=== PATIENT | male | born 1955 | race Asian ===

== ENCOUNTER 2018-08-31 18:00 | Inpatient (IN) | payer OTHER ==
[~2018-08-31] VITALS: Ht 170.2 cm; Wt 82.1 kg
[2018-08-31 18:07] VITALS: Ht 170.2 cm; Wt 82.1 kg
--- NOTE | 2018-08-31 18:30 | NUR ---
PATIENT BIBA AFTER HAVING DIZZINESS AND NAUSEA SINCE LAST NIGHT. STS THAT HE DID HAVE SOME INITIAL CHEST PRESSURE LAST NIGHT BUT THE PRESSURE WAS RELIEVED AFTER HE HAD VOMITTED. ASSISTED PATIENT TO [facility], PATIENT WAS DIZZY AND HAD DIFFICULTY AMBULATED TO [facility]. STS THAT HIS RIGHT LEG FEELS NUMB FOR THE PAST 6 MONTHS. AAOX4, PERRLA GCS 15, PATIENT ACTING APPROPRIATELY. AWAITING MSE
--- NOTE | 2018-08-31 19:06 | NUR ---
REPORT OFF TO ANTONIO MÉNDEZ
--- NOTE | 2018-08-31 19:07 | NUR ---
REPORT OFF TO ANTONIO MÉNDEZ
--- NOTE | 2018-08-31 19:07 | NUR ---
RECEIVED REPORT FROM SHARI ALVAREZ, I WILL RESUME FURTHER OF THIS PATIENT.
--- NOTE | 2018-08-31 19:32 | NUR ---
PT IN POSITION OF COMFORT IN SEMI CERDA'S, PT DENIES ANY PAIN. PT C/O FEELING DIZZY AT THIS TIME. NO NUERO DEFICITS NOTED. PT IS AAOX4, NO DISTRESS NOTED, RESP E/U, SKIN IS PINK WARM AND DRY. PT IN FULL CM, NSR, VSS. IV FLUSHED WITH 10CC SALINE, NO INFILTRATION OR PAIN NOTED TO SITE. BED IN LOWEST POSITION, SIDERAIL X1 UP FOR SAFETY, CALL BLOOM WITHIN REACH. WILL CONT TO MONITOR. NEPHEW AT THE BEDSIDE.
--- NOTE | 2018-08-31 19:56 | NUR ---
DR CAPONE AT [facility] FOR MSE TO PATIENT.
--- NOTE | 2018-08-31 20:26 | NUR ---
PT TAKEN OFF THE FLOOR TO RADIOLOGY VIA WHEELCHAIR. PT IN NO DISTRESS, RESP E/U.
--- NOTE | 2018-08-31 20:32 | NUR ---
RT AT BEDSIDE FOR ABG DRAW
[2018-08-31 20:42] LABS: BASOPHIL % 0.5 % (0-2); PLATELET COUNT 285 x10^3mcL (130-400); RED CELL DISTRIBUTION WIDTH 12.9 % (11.5-14.5)
--- NOTE | 2018-08-31 20:48 | NUR ---
XRAY AT BEDSIDE
[2018-08-31 20:51] LABS: CALCIUM 8.8 mg/dL (8.5-10.1); CHLORIDE SERUM 103 mmol/L (98-107); CREATININE SERUM 1.1 mg/dL (0.7-1.3); GFR1 > 60 mL/min; GLUCOSE SERUM 272 mg/dL (74-106); POTASSIUM SERUM 3.9 mmol/L (3.5-5.1); SODIUM SERUM 142 mmol/L (136-145)
[2018-08-31 20:55] LABS: ALBUMIN 3.6 g/dL (3.4-5.0); ALKALINE PHOSPHATASE 193 U/L (46-116); ALT/SGPT 14 U/L (16-63); AST/SGOT 6 U/L (15-37); BILIRUBIN TOTAL 0.64 mg/dL (0.20-1.00); CHOLESTEROL 185 mg/dL (<200); TOTAL PROTEIN, SERUM 7.3 g/dL (6.4-8.2)
--- NOTE | 2018-08-31 22:20 | NUR ---
PT RESTING IN POSTIION OF COMFROT WITH EYES CLOSED, AROUSABLE TO VOICE, PT IS AAOX4, NO DISTRESS NOTED, RESP E/U SKIN IS PINK WARM AND DRY. PT REPORTS IMPROVED DIZZINESS, PT STATED I FEEL "ONLY A LITTLE DIZZY." PER SON ON THE PHONE FOR TRANSLATION. AT THE BEDSIDE. PT ON FULL CM, NSR, VSS, BED IN LOWEST POSITION FOR SAFETY, SIDERAIL X1 UP, FLUIDS INFUSING NO INFILTRATION OR PAIN NOTED TO SITE. WILL CONT TO MONITOR.
[2018-09-01] VITALS (7 sets, daily range): BP systolic 116–134; BP diastolic 66–80
[2018-09-01 00:32] LABS: PHOSPHOROUS 2.9 mg/dL (2.5-4.9)
--- NOTE | 2018-09-01 01:00 | NUR ---
PT MEDICATED PER ORDER. PT VERBALIZED UNDERSTANDING OF MEDICATION TEACHING. SEE EMAR FOR DETAILS.
--- NOTE | 2018-09-01 01:04 | NUR ---
REPOT GIVEN TO MAIA ALVAREZ ON TELE FLOOR WHO WILL RESUME FURTHER CARE OF THIS PATIENT.
[2018-09-01] MEDS ORDERED: GLUCOPHAGE XR500 MG PO (01:09)
[2018-09-01] MEDS ORDERED: ZESTRIL5 MG PO (01:10)
--- NOTE | 2018-09-01 01:45 | NUR ---
PT ARRIVED VIA GURNEY FROM ER ACCOMPANIED BY ER NURSES, PT AMBULATED FROM GURNEY TO BED WITH STEADY GAIT, NO SOB OR PAIN AT THIS TIME, ASSESSMENT PERFORMED AT THIS TIME, PT ORIENTED TO THE CONTROLS OF THE ROOM, IV 18 G TO THE LEFT WRIST INFUSING ZITHROMAX AT 250 ML PER HOUR, SAFETY PRECAUTIONS IN PLACE, BED IN THE LOWEST POSITION, CALL LIGHT IN REACH, WILL CONTINUE TO MONITOR.
--- NOTE | 2018-09-01 01:50 | NUR ---
PT TRANSFERRED TO TELE FROM ACCOMPANIED BY NURSE AND EMT. RN AT BEDSIDE TO ASSUME CARE OF PT. IV SITE PATENT, NO S/S OF INFILTRATION. RN AWARE OF MEDICATION STILL RUNNING.
--- NOTE | 2018-09-01 03:07 | NUR ---
PT SLEEPING IN BED WITH NO ACUTE DISTRESS NOTED AT THIS TIME, RESPIRATIONS EVEN AND UNLABORED, SAFETY PRECAUTIONS IN PLACE WILL CONTINUE TO MONITOR.
--- NOTE | 2018-09-01 06:18 | NUR ---
PT HAD NO EPISODES OF SOB SINCE ADMISSION, PT DENIED PAIN THROUGH SHIFT, PT IS STABLE AND COMFORTABLE, SAFETY PRECAUTIONS IN PLACE, WILL CONTINUE TO MONITOR AND ENDORSE CARE TO ONCOMING SHIFT
[2018-09-01 07:06] LABS: BASOPHIL % 0.7 % (0-2); PLATELET COUNT 266 x10^3mcL (130-400); RED CELL DISTRIBUTION WIDTH 13.2 % (11.5-14.5)
--- NOTE | 2018-09-01 07:10 | NUR ---
RECEIVED BEDSIDE REPORT FROM SILK SCREEN ETCHER NURSE. PATIENT IS RESTONG COMFORTABLY IN BED. NO APPARENT SIGNS OF PAIN, SOB, OR RESPIRATORY DISTRESS NOTED, ON ROOM AIR. 18G IV TO LEFT WRIST INFUSING NS @ 100ML/HR. NO EDEMA OR ERYTHEMA NOTED AT SITE. CALL LIGHT WITHIN REACH, BED IN LOW POSITION. SAFETY PRECAUTIONS IN PLACE.
[2018-09-01 07:20] LABS: CALCIUM 8.1 mg/dL (8.5-10.1); CARBON DIOXIDE 28.2 mmol/L (21-32); CHLORIDE SERUM 106 mmol/L (98-107); GFR1 > 60 mL/min; GLUCOSE SERUM 234 mg/dL (74-106); POTASSIUM SERUM 3.5 mmol/L (3.5-5.1); SODIUM SERUM 144 mmol/L (136-145)
--- NOTE | 2018-09-01 08:49 | NUR ---
ADMINISTERED MEIDICTION PER EMAR. PATIENT EDUCATED OF NEED FOR MEDICATION. ADVERSE EFFECTS TO REPORT. PATIENT VERBALIZED UNDERSTNDING. QUESTIONS AND CONCERNS ADDRESSED. SAFETY PRECAUTIONS IN PLACE.
--- NOTE | 2018-09-01 08:50 | NUR ---
RESPIRATORY AT BEDSIDE FOR TREATMENT
--- NOTE | 2018-09-01 10:06 | NUR ---
PATIETN IS STABLE NO APPARENT SIGNS OF PAIN, SOB, OR RESPIRATORY DISTRESS. PATIENT DENIES DIZZINESS, OR OTHER NEEDS AT THIS TIME. SAFETY PRECAUTIONS IN PLACE.
--- NOTE | 2018-09-01 11:32 | NUR ---
ADMINISTERED ACCU CHECK PER EMAR. PATIENT EDUCATED OF NEED FOR MEDICATION. ADVERSE EFFECTS TO REPORT. PATIENT VERBALIZED UNDERSTNDING. QUESTIONS AND CONCERNS ADDRESSED. SAFETY PRECAUTIONS IN PLACE.
--- NOTE | 2018-09-01 12:22 | NUR ---
PATIENT RESTING COMFORTABLY IN BED, FAMILY AT BEDSIDE. NO APPARENT SIGNS OF PAIN, SOB, OR RESPIRATORY DISTRESS. ON ROOM AIR. PATIENT DENIES CHEST PAIN, HAMMOND, OR DIZZINESS. DENIES OTHER NEEDS AT THIS TIME. QUESTIONS AND CONCERNS ADDRESSED, SAFETY PRECAUTIONS IN PLACE.
--- NOTE | 2018-09-01 14:11 | NUR ---
ADMINISTERED MEIDICTION PER EMAR. PATIENT EDUCATED OF NEED FOR MEDICATION. ADVERSE EFFECTS TO REPORT. PATIENT VERBALIZED UNDERSTNDING. QUESTIONS AND CONCERNS ADDRESSED. SAFETY PRECAUTIONS IN PLACE.
--- NOTE | 2018-09-01 14:58 | NUR ---
PATIENT RESTING COMFORTABLY IN BED, FAMILY AY BEDSIDE. PATIENT DENIES SOB, OR PAIN. RESPIRATIONS EVEN, NOT LABORED. DENIES OTHER NEEDS AT THIS TIME. SAFETY PRECAUTIONS IN PLACE.
--- NOTE | 2018-09-01 16:33 | NUR ---
ADMINISTERED ACCUCHECK PER EMAR. PATIENT EDUCATED OF NEED FOR MEDICATION. ADVERSE EFFECTS TO REPORT. PATIENT VERBALIZED UNDERSTNDING. QUESTIONS AND CONCERNS ADDRESSED. SAFETY PRECAUTIONS IN PLACE.
--- NOTE | 2018-09-01 18:20 | NUR ---
PATIENT IS STABLE, RESTING COMFORTABLY IN BED. NO APPARENT SIGNSOF PAIN, SOB, OR RESPIRATORY DISTRESS. PATIENT DENIES HEADACHE OR DIZZINESS, N/V. IV TO LEFT WRIST IS INFUSING NS AT 100ML/HR. NO EDEMA OR ERYTHEMA NOTED TO SITE. CALL LIGHT AND PHONE WITHIN REACH, BED IN LOW POSITION. FAMILY AT BEDSIDE. QUESTIONS AND CONCERNS ADDRESSED. SAFETY PRECAUTIONS IN PLACE. WILL ENDORSE CARE TO RN ONCOLOGY NURSE.
--- NOTE | 2018-09-01 19:03 | NUR ---
ENDORSED CARE TO TIN CAN LABORER NURSE
--- NOTE | 2018-09-01 19:30 | NUR ---
RECIEVED PT RESTING IN BED WITH SPOUSE AND SON AT BEDSIDE, WITH NO ACUTE DISTRESS NOTED, ASSESSMENT PERFORMED, PT IS A/OX4 NO COMPLAINTS OF HAMMOND OR DIZZINESS, PT DENEIS SOB OR PAIN, TELE 19 SR WITH 1 DEG[address] AV BLOCK AND DEPRESED [address] SEG, SAFETY PRECAUTIONS IN PLACE WILL CONTINUE TO MONITOR
--- NOTE | 2018-09-01 21:50 | NUR ---
PT SITTING UP IN BED WATCHING VIDEOS ON HIS TABLET, PT DENIES PAIN OR SOB AT THIS TIME, PT SPOUSE AND SON AT BEDSIDE, SAFETY PRECAITONS IN PLACE, WILL CONTIUE TO MONITOR
--- NOTE | 2018-09-02 00:05 | NUR ---
PT SITTING UP IN BED WATCHING VIDEOS ON TABLET, PT FAMILY WENT HOME, PT DENIES PAIN OR SOB AT THIS TIME, SAFETY PRECAUTIONS IN PLACE WILL CONTINUE TO MONITIOR.
--- NOTE | 2018-09-02 01:45 | NUR ---
BLOOD TRANSFUSION FINISHED, VITALS FOLLOWS: TEMP 98.0, HR 68, BP105/61, RR, 19, SPO2 98%, PT STABLE, DENIES SOB AT THIS TIME, RESTING IN BED, WILL CONTINUE TO MONITOR
--- NOTE | 2018-09-02 03:08 | NUR ---
PT RESTING IN BED WIHT EYES CLOSED, NO ACUTE RESPIRATORY DISTRESS NOTED AT THIS TIME, RESPIRATIONS EVEN AND UNLABORED, SAFETY PRECAUTIONS IN PLACE, WILL CONTINUE TO MONITOR
[2018-09-02 03:59] LABS: microscopic required? NO
[2018-09-02 04:05] LABS: UA SPECIFIC GRAVITY 1.025 (1.005-1.035); urine erythrocyte NEGATIVE (NEGATIVE)
--- NOTE | 2018-09-02 04:42 | NUR ---
CALLED LAB TO SEE IF FRESH FROZEN PLASMA WAS READY. LAB SAID 15 MORE MIN
[2018-09-02 05:32] VITALS: BP 125/77
--- NOTE | 2018-09-02 05:50 | NUR ---
PT RESTED THROUGH SHIFT WITH NO ACUTE DISTRESS NOTED, PT DENIED PAIN OR SOB THROUGH SHIFT, PT WAS EASILY AROUSABLE TO VERBAL STIMULI THROUGH NIGHT, SAFETY PRECAUTUTIONS MAINTAINED, WILL CONTIUE TO MONITOR AND ENDORSE CARE TO ONCOMING SHIFT
[2018-09-02 06:26] LABS: BASOPHIL % 1.2 % (0-2); PLATELET COUNT 241 x10^3mcL (130-400); RED CELL DISTRIBUTION WIDTH 12.9 % (11.5-14.5)
[2018-09-02 06:41] LABS: CALCIUM 8.2 mg/dL (8.5-10.1); CARBON DIOXIDE 25.2 mmol/L (21-32); CHLORIDE SERUM 109 mmol/L (98-107); CREATININE SERUM 0.9 mg/dL (0.7-1.3); GFR1 > 60 mL/min; GLUCOSE SERUM 125 mg/dL (74-106); POTASSIUM SERUM 3.8 mmol/L (3.5-5.1); SODIUM SERUM 143 mmol/L (136-145)
--- NOTE | 2018-09-02 07:25 | NUR ---
PT IS AAOX4. RESP EVEN AND UNLABORED. LUNG SOUNDS CTA. ON R/A. TELE [address] READING AV BLOCK AND DECREASED ST SEGMENT. DENIES C/P PRESSURE. ABDOMEN SOFT, NONTENDER, NONDISTENDED. BOWEL SOUNDS ACTIVE X4. DENIES N/V/D. PERIPHERAL PULSES MODERATELY PALPABLE. NO EDEMA NOTED. CAP REFILL < 3 SEC. IVF RUNNING TO LW, SITE WNL, NO S/S OF INFECTION OR INFILTRATION. PT DENIES PAIN AT THIS TIME. FALL PROTOCOL IN PLACE. BED IN LOWEST POSITION. CALL LIGHT WIHTIN REACH.
[2018-09-02 09:01] VITALS: BP 140/88
--- NOTE | 2018-09-02 09:51 | NUR ---
PT SITTING UP IN BED, RESP EVEN AND UNLABORED. DENIES PAIN AT THIS TIME. DUE MEDS GIVEN AND TOLERATED WELL. B/P 140.88, HR 76. EXTRA FLUIDS GIVEN. CALL LIGHT WITHIN REACH.
--- NOTE | 2018-09-02 10:30 | NUR ---
DR. BATISTA AND MEDICAL TEAM MET WITH PT AND DISCUSSED POC. PT WILL DISCHARGE TO HOME TODAY. PT AGREED WITH POC.
[2018-09-02] MEDS ORDERED: AUG500 PO (11:39)
--- NOTE | 2018-09-02 12:08 | NUR ---
BLOOD SUGAR 186, 3 UNITS REG INSULIN GIVEN. RESP EVEN AND ULABORED. NO DISTRESS NOTED. PT DENIES PAIN AT THIS TIME. CALL LIGHT WITHIN REACH.
[2018-09-02 12:51] VITALS: BP 140/88
--- NOTE | 2018-09-02 14:05 | NUR ---
PT DISCHARGED TO HOME IN NO DISTRESS. D/C INSTRUCTIONS REVIEWED, ALL FORMS SIGNED AND PLACED IN CHART. TELE 19 REMOVED AND RETURNED TO SECURITY SYSTEM ANALYST. IV CATH TO LW REMOVED INTACT. SITE WNL. NO S/S OF INFECTION OR INFILTRATION NOTED. COVERED WITH GAUZE AND BANDAID. VS: 98.8F, HR 76, RR 18 B/P 140/88, 95% ON R/A. PT DENIES PAIN AT TIME OF DISCHARGE. ALL PERSONAL BELONGINGS TAKEN HOME.
== END 2018-09-02 13:50 | disposition home or self-care (01) | DRG 48 ==
LOC: ED 18:00 → DU 23:46
PROVIDERS: Specialist; ADMIT Internal Medicine
DX: G90.8 Other disorders of autonomic nervous system (principal); J69.0 Pneumonitis due to inhalation of food and vomit; E11.65 Type 2 diabetes mellitus with hyperglycemia; E86.0 Dehydration; A08.4 Viral intestinal infection, unspecified; R74.0 Nonspecific elevation of levels of transaminase and lactic acid dehydrogenase [LDH]; E78.5 Hyperlipidemia, unspecified; I10 Essential (primary) hypertension; Z95.2 Presence of prosthetic heart valve; Z68.26 Body mass index [BMI] 26.0-26.9, adult; Z79.84 Long term (current) use of oral hypoglycemic drugs; Z86.73 Personal history of transient ischemic attack (TIA), and cerebral infarction without residual deficits; R09.02 Hypoxemia
CPT/HCPCS: 36600; 82962; 83880; 87046; 87046-59; 94150; G0378; G0480; J0456; J0696; J2543; J7030; J7050; J7060; J7620; J8597; Q0092; Q9967